=== PATIENT | female | born 1955 | race Caucasian/White ===

== ENCOUNTER → 2017-05-30 | Outpatient (REF) | payer OTHER ==
[2017-05-30 14:05] LABS: D-DIMER QUANT 461.6 ng/ml (<500)
[2017-05-31 09:17] LABS: DRVV SCREEN 33.4 SEC
[2017-05-31 09:18] LABS: PTT LUPUS TYPE ANTICOAG SCREEN 0.8 (0-1.2)
== END ==
LOC: M LAB REF 12:58
DX: I26.99 Other pulmonary embolism without acute cor pulmonale (principal)
CPT/HCPCS: 85246

== ENCOUNTER → 2017-06-30 | Outpatient (REF) | payer OTHER ==
[2017-07-05 14:14] LABS: PROTEIN S ANTIGEN FREE 156 % (57-157); PROTEIN S ANTIGEN TOTAL 116 % (60-150); VITAMIN B6,PYRIDOXAL PHOSPHATE 12.6 ug/L (2.0-32.8)
[2017-07-05 14:14] LABS: PROTEIN S FUNCTIONAL ACTIVITY 137 % (63-140)
== END ==
LOC: M LAB REF 17:43
DX: D68.59 Other primary thrombophilia (principal)
CPT/HCPCS: 85306

== ENCOUNTER → 2017-07-13 | Outpatient (REF) | payer OTHER | LOC: M SFHCLERA 14:02 | DX: J02.9 Acute pharyngitis, unspecified (principal) ==

== ENCOUNTER → 2018-06-10 | Outpatient (REF) | payer OTHER | LOC: M SFHCLERA 18:45 | PROVIDERS: ATTEND Nurse Practitioner Family | DX: J02.9 Acute pharyngitis, unspecified (principal) ==

== ENCOUNTER → 2019-09-20 | Outpatient (CLI) | payer OTHER | LOC: M LABSMTC 11:49 | PROVIDERS: ATTEND Family Medicine | DX: Z11.59 Encounter for screening for other viral diseases (principal) | CPT/HCPCS: C9803; U0003 ==

== ENCOUNTER → 2021-10-06 | Outpatient (CLI) | payer OTHER ==
[2021-10-06 18:06] LABS: BASO % 0.3 % (0.0-1.0); EOS # 0.2 10^3/uL (0.0-0.5); EOS % 2.5 % (0.0-3.0); HEMATOCRIT 43.3 % (36.0-47.0); HEMOGLOBIN 14.1 g/dl (12.0-15.5); LYMPH # 2.1 10^3/uL (1.5-5.0); LYMPH % 33.2 % (24.0-44.0); MEAN CORPUSCULAR HEMOGLOBIN 28.3 pg (27.0-33.0); MEAN CORPUSCULAR HGB CONC 32.6 g/dl (32.0-36.5); MEAN CORPUSCULAR VOLUME 86.8 fl (80.0-96.0); MONO # 0.5 10^3/uL (0.0-0.8); MONO % 7.9 % (2.0-8.0); NEUTROPHILS # 3.6 10^3/uL (1.5-8.5); NEUTROPHILS % 55.9 % (36.0-66.0); PLATELET COUNT, AUTOMATED 378 10^3/uL (150-450); RED BLOOD COUNT 4.99 10^6/uL (4.00-5.40); WHITE BLOOD COUNT 6.4 10^3/uL (4.0-10.0)
[2021-10-06 18:37] LABS: ERYTHROCYTE SEDIMENTATION RATE 14 mm/hr (0-30)
[2021-10-06 18:58] LABS: C REACTIVE PROTEIN QUANTITATIV 0.44 MG/DL (0.00-0.30); RHEUMATOID FACTOR QUANT < 10.0 IU/ML (<15.0)
== END ==
LOC: M LAB 15:17
PROVIDERS: ATTEND Physician Assistant
DX: H20.9 Unspecified iridocyclitis (principal)

== ENCOUNTER 2023-07-06 10:46 | Inpatient (IN) | payer MEDICARE, OTHER ==
[~2023-07-06] VITALS: Ht 157.5 cm; Wt 68.2 kg
[2023-07-06 11:27] LABS: VENOUS BASE EXCESS 0.4 (-2.0-2.0); VENOUS HCO3 25.9 MMOL/L (23.0-27.0); VENOUS PARTIAL PRESSURE O2 22.3 mmHg (30.0-50.0); VENOUS PH 7.378 UNITS (7.330-7.430); VENOUS STANDARD HCO3 23.3 MMOL/L; VENOUS TOTAL CO2 27.3 MMOL/L (24.0-28.0)
[2023-07-06 11:43] LABS: BASO % 0.1 % (0.0-1.0); HEMATOCRIT 40.9 % (36.0-47.0); HEMOGLOBIN 14.1 g/dl (12.0-15.5); LYMPH # 0.9 10^3/uL (1.5-5.0); LYMPH % 10.1 % (24.0-44.0); MEAN CORPUSCULAR HEMOGLOBIN 29.2 pg (27.0-33.0); MEAN CORPUSCULAR HGB CONC 34.5 g/dl (32.0-36.5); MEAN CORPUSCULAR VOLUME 84.7 fl (80.0-96.0); MONO # 0.3 10^3/uL (0.0-0.8); NEUTROPHILS # 7.6 10^3/uL (1.5-8.5); NEUTROPHILS % 86.3 % (36.0-66.0); PLATELET COUNT, AUTOMATED 419 10^3/uL (150-450); RED BLOOD COUNT 4.83 10^6/uL (4.00-5.40); WHITE BLOOD COUNT 8.8 10^3/uL (4.0-10.0)
[2023-07-06] MEDS ORDERED: ADV250INH INH (11:48)
[2023-07-06] MEDS ORDERED: INDA1.253 PO (11:48)
[2023-07-06] MEDS ORDERED: MECL-209 PO (11:48)
[2023-07-06] MEDS ORDERED: HYDR-161 PO (11:48)
[2023-07-06] MEDS ORDERED: ROSU20TA61 PO (11:48)
[2023-07-06] MEDS ORDERED: POTA99CA2 PO (11:50)
[2023-07-06] MEDS ORDERED: HOME MED LIST COMPLETE! XX SCH (11:50)
[2023-07-06 11:56] LABS: LIPASE 35 U/L (12-53)
[2023-07-06 11:58] LABS: ALKALINE PHOSPHATASE 79 U/L (46-116); ALT/SGPT 15 U/L (7.0-40); AST/SGOT 29 U/L (<34); BILIRUBIN,DIRECT 0.1 MG/DL (<0.4); BILIRUBIN,TOTAL 0.5 MG/DL (0.3-1.2); BLOOD UREA NITROGEN 20 MG/DL (9-23); CALCIUM LEVEL 10.5 MG/DL (8.3-10.6); CARBON DIOXIDE LEVEL 29 MMOL/L (20-31); CHLORIDE LEVEL 101 MMOL/L (98-107); CREATININE FOR GFR 0.94 MG/DL (0.55-1.30); GLOMERULAR FILTRATION RATE > 60.0 (>45); GLUCOSE, FASTING 194 MG/DL (74-106); POTASSIUM SERUM 3.8 MMOL/L (3.5-5.1); SODIUM LEVEL 138 MMOL/L (136-145); TOTAL PROTEIN 7.9 G/DL (5.7-8.2)
[2023-07-06 12:01] LABS: CK-MB VALUE MASS 2.5 NG/ML (<3.6)
[2023-07-06 12:02] LABS: CPK CREATINE PHOSPHOKINASE 100 U/L (34-145)
[2023-07-06 12:04] LABS: THYROID STIMULATING HORMONE 0.537 uIU/ML (0.55-4.78)
[2023-07-06 13:14] LABS: CK-MB VALUE MASS 2.5 NG/ML (<3.6); MB/CK RELATIVE INDEX 2.87 (< OR =4)
[2023-07-06] MEDS: IBUPROFEN 400MG TAB PO ONE (14:55)
[2023-07-06] MEDS ORDERED: PILL CUTTER 1 EACH XX ONE (14:56)
[2023-07-06] MEDS ORDERED: **hydrALAZINE HCL** 25 MG TAB PO SCH (16:00)
[2023-07-06] MEDS ORDERED: NITROGLYCERIN 0.3MG SUBL TAB SL PRN (16:30)
[2023-07-06] MEDS ORDERED: MOM 30ML SUSPENSION UDC PO PRN (16:35)
[2023-07-06] MEDS ORDERED: ACETAMINOPHEN TAB 650MG DOSE (2X325MG) PO PRN (16:35)
[2023-07-06 17:13] LABS: FREE T4 1.14 NG/DL (0.89-1.76)
[2023-07-06 17:20] LABS: INR 0.92; PARTIAL THROMBOPLASTIN TIME 23.1 SECONDS (24.8-34.2); PROTHROMBIN TIME 12.1 SECONDS (12.5-14.5)
[2023-07-06] MEDS: ATORVASTATIN 20 MG TAB PO SCH (17:20)
[2023-07-06] MEDS: **hydrALAZINE** 50 MG TAB PO SCH (17:21)
[2023-07-06] MEDS: PANTOPRAZOLE 40MG VIAL IV SCH (17:21)
[2023-07-06] MEDS: dilTIAZem 30 MG TAB PO SCH (17:24)
[2023-07-06] MEDS ORDERED: IPRATROPIUM 0.5MG/ALBUTEROL 2.5MG INH SOL UD 3ML (DUONEB) NEB PRN (17:55)
[2023-07-06 18:10] VITALS: BP 167/74; TEMP 97.9; O2SAT 99
[2023-07-06 18:45] VITALS: BP 166/70
[2023-07-06] MEDS: dilTIAZem 60 MG TAB PO ONE (18:46)
[2023-07-06] MEDS: ADVAIR HFA 230/21MCG INHALER INH SCH (19:29)
[2023-07-06 19:50] VITALS: BP 162/67; TEMP 97.1; O2SAT 96
[2023-07-06] MEDS: DOCUSATE SODIUM 100MG CAPSULE PO SCH (20:13)
[2023-07-06] MEDS: ENOXAPARIN 40MG/0.4ML SYRINGE (J1650 PER 10MG) SC SCH (20:14)
[2023-07-06 20:15] VITALS: PULSE 85
[2023-07-06 20:18] VITALS: BP 162/67; O2SAT 97
[2023-07-07 00:11] VITALS: BP 150/67; TEMP 97.4; O2SAT 97
[2023-07-07 03:55] VITALS: BP 133/59; TEMP 96.8; O2SAT 95
[2023-07-07 05:39] LABS: HEMATOCRIT 35.5 % (36.0-47.0); HEMOGLOBIN 12.5 g/dl (12.0-15.5); MEAN CORPUSCULAR HEMOGLOBIN 29.3 pg (27.0-33.0); MEAN CORPUSCULAR HGB CONC 35.2 g/dl (32.0-36.5); MEAN CORPUSCULAR VOLUME 83.1 fl (80.0-96.0); PLATELET COUNT, AUTOMATED 379 10^3/uL (150-450); RED BLOOD COUNT 4.27 10^6/uL (4.00-5.40); WHITE BLOOD COUNT 9.7 10^3/uL (4.0-10.0)
[2023-07-07 06:05] LABS: CALCIUM LEVEL 9.4 MG/DL (8.3-10.6); CREATININE FOR GFR 1.02 MG/DL (0.55-1.30); GLOMERULAR FILTRATION RATE 57.4 (>45); POTASSIUM SERUM 3.1 MMOL/L (3.5-5.1)
[2023-07-07 08:30] VITALS: BP 146/66; TEMP 97; O2SAT 96
[2023-07-07] MEDS: INDAPAMIDE 1.25MG TABLET PO SCH (09:54)
[2023-07-07 11:57] VITALS: BP 157/69; TEMP 97.9; O2SAT 98
[2023-07-07] MEDS: ASPIRIN 81MG CHEW TABLET PO STA (11:59)
[2023-07-07 16:00] VITALS: BP 143/63; TEMP 97.4; O2SAT 97
[2023-07-07] MEDS ORDERED: ATOR1TAB21 PO (17:25)
[2023-07-07] MEDS ORDERED: ASPI81CH8 PO (17:25)
[2023-07-07] MEDS ORDERED: NITR0.3S4 SL (17:25)
[2023-07-07] MEDS ORDERED: LOVE0.6I2 SC (17:25)
[2023-07-07] MEDS ORDERED: PANT40IN4 IV (17:25)
[2023-07-07] MEDS ORDERED: INDA1.253 PO (17:25)
[2023-07-07] MEDS ORDERED: DILT30TA PO (17:25)
[2023-07-07] MEDS ORDERED: HYDR50TA46 PO (17:25)
[2023-07-07] MEDS ORDERED: IPRA0.00 NEB (17:25)
[2023-07-07] MEDS: ENOXAPARIN 80MG/0.8ML SYRINGE (J1650 PER 10MG) SC SCH (17:42)
[2023-07-07] MEDS: POTASSIUM CHLORIDE 10MEQ SR TABLET PO SCH (17:43)
[2023-07-07 17:45] VITALS: BP 143/63
[2023-07-07] MEDS ORDERED: ENTER DRUG NAME HERE (PATIENT'S OWN MED) INH SCH (21:00)
[2023-07-08] MEDS ORDERED: ASPIRIN 81MG CHEW TABLET PO SCH (09:00)
== END 2023-07-07 22:53 | disposition short-term general hospital (02) | DRG 282 ==
LOC: M ED 10:46 → EDBD 10:46 → M ED INP 10:47 → ENRESERV 17:03 → M PCU 18:00 → OBSVTOIN 07-07 09:38
PROVIDERS: ADMIT Student in an Organized Health Care Education/Training Program; ATTEND Student in an Organized Health Care Education/Training Program
DX: I21.4 Non-ST elevation (NSTEMI) myocardial infarction (principal); I48.0 Paroxysmal atrial fibrillation; I25.10 Atherosclerotic heart disease of native coronary artery without angina pectoris; N18.1 Chronic kidney disease, stage 1; E78.5 Hyperlipidemia, unspecified; I12.9 Hypertensive chronic kidney disease with stage 1 through stage 4 chronic kidney disease, or unspecified chronic kidney disease; E02 Subclinical iodine-deficiency hypothyroidism; E55.9 Vitamin D deficiency, unspecified; I67.1 Cerebral aneurysm, nonruptured; G47.33 Obstructive sleep apnea (adult) (pediatric); J44.9 Chronic obstructive pulmonary disease, unspecified; Z86.711 Personal history of pulmonary embolism; Z87.891 Personal history of nicotine dependence; Z79.899 Other long term (current) drug therapy; Z88.2 Allergy status to sulfonamides; Z88.8 Allergy status to other drugs, medicaments and biological substances

== ENCOUNTER 2024-03-02 10:38 | Observation (INO) | payer MEDICARE, OTHER ==
[~2024-03-02] VITALS: Ht 158.8 cm; Wt 68.9 kg
[2024-03-02] VITALS (7 sets, daily range): BP systolic 132–161; BP diastolic 60–77; TEMP 97–97.2; O2SAT 96–99
[~2024-03-02 10:38] MED LIST: ADVA1AER9 INH; ASPI81CH8 PO; ATOR1TAB21 PO; DILT30TA PO; HYDR-161 PO; HYDR50TA46 PO; INDA1.253 PO; IPRA0.00 NEB; LOVE0.6I2 SC; MECL-209 PO; NITR0.3S4 SL; PANT40IN4 IV; POTA99CA2 PO; ROSU20TA86 PO
[2024-03-02] MEDS ORDERED: HYDR25TA87 PO (12:03)
[2024-03-02] MEDS ORDERED: POTA10809 PO (12:03)
[2024-03-02] MEDS ORDERED: ISOVUE-370 76% 100ML VIAL As Ordered ONE (12:47)
[2024-03-02 12:48] LABS: BASO % 0.5 % (0.0-1.0); EOS # 0.1 10^3/uL (0.0-0.5); HEMATOCRIT 38.2 % (36.0-47.0); LYMPH # 2.1 10^3/uL (1.5-5.0); MEAN CORPUSCULAR HEMOGLOBIN 29.1 pg (27.0-33.0); MEAN CORPUSCULAR VOLUME 85.7 fl (80.0-96.0); MONO # 0.4 10^3/uL (0.0-0.8); MONO % 7.3 % (2.0-8.0); NEUTROPHILS # 3.2 10^3/uL (1.5-8.5); PLATELET COUNT, AUTOMATED 353 10^3/uL (150-450); RED BLOOD COUNT 4.46 10^6/uL (4.00-5.40); WHITE BLOOD COUNT 5.9 10^3/uL (4.0-10.0)
[2024-03-02 13:02] LABS: INR 0.95; PARTIAL THROMBOPLASTIN TIME 25.5 SECONDS (24.8-34.2)
[2024-03-02] MEDS: METOCLOPRAMIDE INJ 10MG/2ML VIAL IV ONE (13:03)
[2024-03-02] MEDS: NS (Normal Saline) 0.9% 1,000 ML IV SCH (13:03)
[2024-03-02 13:17] LABS: BLOOD UREA NITROGEN 20 MG/DL (9-23); CALCIUM LEVEL 9.4 MG/DL (8.3-10.6); CARBON DIOXIDE LEVEL 28 MMOL/L (20-31); CHLORIDE LEVEL 104 MMOL/L (98-107); CK-MB VALUE MASS < 1.0 NG/ML (<3.6); CREATININE FOR GFR 1.01 MG/DL (0.55-1.30); GLUCOSE, FASTING 76 MG/DL (74-106); SODIUM LEVEL 141 MMOL/L (136-145)
[2024-03-02 13:24] LABS: CPK CREATINE PHOSPHOKINASE 62 U/L (34-145); MB/CK RELATIVE INDEX 1.61 (< OR =4)
[2024-03-02] MEDS ORDERED: ASPI81TA26 PO (16:32)
[2024-03-02] MEDS ORDERED: HOME MED LIST COMPLETE! XX SCH (16:35)
[2024-03-02] MEDS: KETOROLAC 30 MG/ML 1ML VIAL IV ONE (16:37)
[2024-03-02] MEDS ORDERED: **hydrALAZINE HCL** 25 MG TAB PO PRN (16:55)
[2024-03-02] MEDS: ADVAIR HFA 115/21MCG INHALER INH SCH (20:19)
[2024-03-02] MEDS: AMITRIPTYLINE 10MG TABLET PO SCH (20:52)
[2024-03-03 04:00] VITALS: BP 150/67; TEMP 97.3; O2SAT 97
[2024-03-03 05:54] LABS: HEMATOCRIT 37.3 % (36.0-47.0); HEMOGLOBIN 12.6 g/dl (12.0-15.5); MEAN CORPUSCULAR HEMOGLOBIN 28.5 pg (27.0-33.0); MEAN CORPUSCULAR HGB CONC 33.8 g/dl (32.0-36.5); MEAN CORPUSCULAR VOLUME 84.4 fl (80.0-96.0); PLATELET COUNT, AUTOMATED 321 10^3/uL (150-450); RED BLOOD COUNT 4.42 10^6/uL (4.00-5.40); WHITE BLOOD COUNT 5.3 10^3/uL (4.0-10.0)
[2024-03-03 06:09] LABS: BLOOD UREA NITROGEN 20 MG/DL (9-23); CALCIUM LEVEL 8.7 MG/DL (8.3-10.6); CARBON DIOXIDE LEVEL 27 MMOL/L (20-31); CHLORIDE LEVEL 106 MMOL/L (98-107); CREATININE FOR GFR 0.98 MG/DL (0.55-1.30); GLOMERULAR FILTRATION RATE > 60.0 (>45); GLUCOSE, FASTING 93 MG/DL (74-106); POTASSIUM SERUM 3.6 MMOL/L (3.5-5.1); SODIUM LEVEL 141 MMOL/L (136-145)
[2024-03-03] MEDS: ENOXAPARIN 40MG/0.4ML SYRINGE (J1650 PER 10MG) SC SCH (09:00)
[2024-03-03 09:09] VITALS: BP 152/76
[2024-03-03] MEDS: **hydrALAZINE HCL** 25 MG TAB PO SCH (09:09)
[2024-03-03] MEDS: INDAPAMIDE 1.25MG TABLET PO SCH (09:09)
[2024-03-03] MEDS: ASPIRIN 81MG ENTERIC TABLET PO SCH (09:10)
[2024-03-03] MEDS: ROSUVASTATIN 10 MG TAB (CRESTOR) PO SCH (09:10)
[2024-03-03] MEDS: KETOROLAC 30 MG/ML 1ML VIAL IV ONE (09:25)
[2024-03-03] MEDS: KETOROLAC 30 MG/ML 1ML VIAL IM ONE (11:03)
[2024-03-03 12:00] VITALS: BP 143/73; TEMP 97.7; O2SAT 96
== END 2024-03-03 14:23 | disposition home or self-care (01) ==
LOC: EDBD 10:38 → M ED 10:38 → M ED INP 15:18 → M MSPAV 18:34
PROVIDERS: ADMIT Internal Medicine; ATTEND Internal Medicine
DX: R51.9 Headache, unspecified (principal); R20.0 Anesthesia of skin; R29.700 NIHSS score 0; I67.1 Cerebral aneurysm, nonruptured; I12.9 Hypertensive chronic kidney disease with stage 1 through stage 4 chronic kidney disease, or unspecified chronic kidney disease; J44.9 Chronic obstructive pulmonary disease, unspecified; G47.33 Obstructive sleep apnea (adult) (pediatric); I25.10 Atherosclerotic heart disease of native coronary artery without angina pectoris; N18.2 Chronic kidney disease, stage 2 (mild); Z86.711 Personal history of pulmonary embolism; Z98.61 Coronary angioplasty status; Z88.8 Allergy status to other drugs, medicaments and biological substances; Z88.2 Allergy status to sulfonamides; Z79.899 Other long term (current) drug therapy; Z79.82 Long term (current) use of aspirin; Z79.51 Long term (current) use of inhaled steroids
CPT/HCPCS: 36415; 70450; 70496; 70498; 70551; 80047; 80048; 82550; 82553; 84484; 85025; 85027; 85610; 85730; 87040; 93005; 93041; 94640; 94760; 96361; 96372; 96374; 96375; 99285; G0378; J1885; J2765; Q9967

== ENCOUNTER → 2024-03-27 | Outpatient (CLI) | payer MEDICARE, OTHER ==
[~2024-03-27] MED LIST changes: +ASPI81TA26 PO; +HYDR25TA87 PO; +POTA10809 PO; +PROHANCE 279.3MG/ML 15ML VIAL ONE
== END ==
LOC: M PLAIMG 08:21
PROVIDERS: ATTEND Nurse Practitioner Family
DX: I67.1 Cerebral aneurysm, nonruptured (principal); I67.82 Cerebral ischemia
CPT/HCPCS: 70553; A9576